=== PATIENT | female | born 1980 | race Caucasian/White ===

== ENCOUNTER 2018-12-17 08:12 | Day surgery (SDC) | payer OTHER ==
[~2018-12-17 08:12] MED LIST: PERCOCET 5/3251 TAB PO; PROVENTIL S1 ML/5 MG IH; ZOFRAN4 MG PO
== END 2018-12-17 13:10 | disposition home or self-care (01) ==
LOC: CIR.AMB 08:12
DX: O02.1 Missed abortion (principal); Z3A.08 8 weeks gestation of pregnancy

== ENCOUNTER 2021-10-27 08:41 | Outpatient (CLI) | payer OTHER | END 2021-10-27 09:01 | disposition home or self-care (01) | LOC: SONOGRAMA 08:41 | PROVIDERS: ATTEND Surgery | DX: N60.11 Diffuse cystic mastopathy of right breast (principal); N60.12 Diffuse cystic mastopathy of left breast ==

== ENCOUNTER 2022-04-05 12:50 | Outpatient (CLI) | payer OTHER | END 2022-04-05 12:51 | disposition home or self-care (01) | LOC: NUCLEAR 12:50 | PROVIDERS: ATTEND Internal Medicine Sports Medicine | DX: C73 Malignant neoplasm of thyroid gland (principal) | CPT/HCPCS: 79005; A9517 ==

== ENCOUNTER 2022-04-09 12:35 | Outpatient (CLI) | payer OTHER | END 2022-04-09 12:36 | disposition home or self-care (01) | LOC: NUCLEAR 12:35 | PROVIDERS: ATTEND Internal Medicine Sports Medicine | DX: C73 Malignant neoplasm of thyroid gland (principal) | CPT/HCPCS: 78018; A9528 ==